=== PATIENT | male | born 1985 | race Two or more races ===

== ENCOUNTER 2017-01-07 18:45 | Emergency (ER) | payer SELFPAY ==
[~2017-01-07] VITALS: Ht 172.7 cm; Wt 65.8 kg
[2017-01-07 19:28] VITALS: BP 152/87
[2017-01-07] MEDS ORDERED: ALBUTEROL FS 2.5 MG/3 ML VIAL.NEB NEB ONE (21:00)
[2017-01-07] MEDS ORDERED: IPRATROPIUM NEB FS 0.5 MG/2.5 ML AMPUL.NEB NEB ONE (21:00)
[2017-01-07] MEDS ORDERED: IPRATROPIUM NEB FS 0.5 MG/2.5 ML AMPUL.NEB ONE (21:02)
[2017-01-07] MEDS ORDERED: ALBUTEROL FS 2.5 MG/3 ML VIAL.NEB ONE (21:02)
[2017-01-07] MEDS ORDERED: predniSONE 20 MG TABLET PO ONE (22:00)
== END 2017-01-07 21:56 | disposition home or self-care (01) ==
LOC: ER 18:52
DX: J40 Bronchitis, not specified as acute or chronic (principal)
CPT/HCPCS: 71010; 94640; 99283; A4606; Z7610

== ENCOUNTER 2017-02-23 20:13 | Emergency (ER) | payer SELFPAY ==
[~2017-02-23] VITALS: Ht 170.2 cm; Wt 72.6 kg
--- NOTE | 2017-02-23 22:25 | NUR ---
PT CAME FROM HOME C/O OF CONGESTION TO Brodie KAYE X 2 YEARS STATES "FOR 2 YEARS I HAVE HAD THIS PROBLEM, BUT HAVENT SEEN A DOCTOR FOR IT" BREATH SOUNDS CLEAR BILATERALY, BREATHING EVEN/UNLABORED, 98% ON RA, A-FEBRILE
[2017-02-23 22:31] VITALS: BP 131/82
== END 2017-02-23 22:33 | disposition home or self-care (01) ==
LOC: ER 20:15
DX: M54.2 Cervicalgia (principal); R09.81 Nasal congestion; G89.29 Other chronic pain
CPT/HCPCS: 99281; A4606; Z7610; Z7502

== ENCOUNTER 2023-01-08 16:49 | Emergency (ER) | payer MEDICAID ==
[~2023-01-08] VITALS: Ht 167.6 cm; Wt 79.4 kg
[2023-01-08 16:53] VITALS: BP 138/92; TEMP 98.2
[2023-01-08] MEDS ORDERED: VALA100026 PO (17:11)
[2023-01-08 17:17] VITALS: O2SAT 100
== END 2023-01-08 17:19 | disposition home or self-care (01) ==
LOC: ER 16:57
DX: B02.9 Zoster without complications (principal)